=== PATIENT | male | born 1995 | race Caucasian/White ===

== ENCOUNTER 2023-12-17 00:35 | Emergency (ER) | payer OTHER ==
[~2023-12-17] VITALS: Ht 188 cm; Wt 112.7 kg
[2023-12-17 04:20] LABS: APPEARANCE, URINE CLEAR (CLEAR); BACTERIA, URINE AUTO NEGATIVE (NEGATIVE); BILIRUBIN, URINE AUTO NEGATIVE (NEGATIVE); BLOOD, URINE BLOOD NEGATIVE (NEGATIVE); COLOR, URINE YELLOW (YELLOW); GLUCOSE, URINE (UA) AUTO NEGATIVE (NEGATIVE); KETONE, URINE AUTO NEGATIVE (NEGATIVE); LEUKOCYTE ESTERASE, URINE AUTO NEGATIVE (NEGATIVE); MUCUS, URINE SMALL (NEGATIVE); NITRITE, URINE AUTO NEGATIVE (NEGATIVE); PROTEIN, URINE AUTO NEGATIVE (NEGATIVE); RBC, URINE AUTO 0 /HPF (0-3); SPECIFIC GRAVITY URINE AUTO 1.028 (1.002-1.035); SQUAMOUS EPITHELIAL CELL UR AU 0 /HPF (0-6); UROBILINOGEN, URINE AUTO 0.2 mg/dL (0.0-2.0); WBC, URINE AUTO 0 /HPF (0-3)
[2023-12-17] MEDS ORDERED: NAPR-837 PO (04:41)
[2023-12-17] MEDS: NAPROXEN 250 MG TAB PO ONE (04:47)
[2023-12-17 04:55] VITALS: BP 119/63; TEMP 97; O2SAT 99
== END 2023-12-17 04:56 | disposition home or self-care (01) ==
LOC: M ED 00:35
DX: N50.812 Left testicular pain (principal); F10.10 Alcohol abuse, uncomplicated; F17.200 Nicotine dependence, unspecified, uncomplicated; Z79.1 Long term (current) use of non-steroidal anti-inflammatories (NSAID)

== ENCOUNTER 2024-05-27 18:50 | Emergency (ER) | payer OTHER ==
[~2024-05-27] VITALS: Ht 188 cm; Wt 106.8 kg
[~2024-05-27 18:50] MED LIST: NAPR-837 PO
[2024-05-27 19:00] VITALS: TEMP 97.7
[2024-05-28] MEDS ORDERED: BACL10TA8 PO (02:56)
[2024-05-28] MEDS: BACLOFEN 10 MG TAB PO ONE (03:05)
[2024-05-28 03:12] VITALS: BP 135/69; O2SAT 97
== END 2024-05-28 03:13 | disposition home or self-care (01) ==
LOC: M ED 18:50
DX: S39.012A Strain of muscle, fascia and tendon of lower back, initial encounter (principal); X50.0XXA Overexertion from strenuous movement or load, initial encounter; Y92.009 Unspecified place in unspecified non-institutional (private) residence as the place of occurrence of the external cause; Y93.89 Activity, other specified; Y99.9 Unspecified external cause status; Z79.899 Other long term (current) drug therapy